=== PATIENT | male | born 1960 | race Caucasian/White ===

== ENCOUNTER 2018-01-22 19:38 | Emergency (ER) | payer OTHER ==
[~2018-01-22] VITALS: Ht 170.2 cm; Wt 86.6 kg
[2018-01-22 19:39] VITALS: Ht 170.2 cm; Wt 86.6 kg
[2018-01-22 20:42] VITALS: BP 141/101
== END 2018-01-22 20:42 | disposition home or self-care (01) ==
LOC: ED 19:38
DX: S61.211A Laceration without foreign body of left index finger without damage to nail, initial encounter (principal); L03.114 Cellulitis of left upper limb; W27.8XXA Contact with other nonpowered hand tool, initial encounter; Y93.89 Activity, other specified; Y92.89 Other specified places as the place of occurrence of the external cause; Y99.8 Other external cause status
CPT/HCPCS: 90715

== ENCOUNTER 2018-01-24 18:33 | Emergency (ER) | payer OTHER ==
[~2018-01-24] VITALS: Ht 175.3 cm; Wt 81.6 kg
[2018-01-24 18:42] VITALS: Ht 175.3 cm; Wt 81.6 kg
[2018-01-24 21:07] VITALS: BP 149/97
== END 2018-01-24 21:07 | disposition home or self-care (01) ==
LOC: ED 18:33
DX: S61.211D Laceration without foreign body of left index finger without damage to nail, subsequent encounter (principal); S60.452A Superficial foreign body of right middle finger, initial encounter; W22.8XXD Striking against or struck by other objects, subsequent encounter
CPT/HCPCS: J1885